=== PATIENT | female | born 1985 | race Caucasian/White ===

== ENCOUNTER → 2023-10-28 08:00 | Outpatient (REF) | payer BC, SELFPAY ==
[2023-10-28 10:13] LABS: % Basophils 0.7 % (0-2); % Eosinophils 0.9 % (0-6); % Immature Granulocytes 0.4 % (0-0.5); % Lymphocytes 21.4 % (20.5-51.1); % Monocytes 5.7 % (1.7-9.3); % Neutrophils 70.9 % (42.2-75.2); Absolute Eosinophils 0.1 10^3/uL (0-0.7); Absolute Lymphocytes 1.2 10^3/uL (1.2-3.4); Absolute Monocytes 0.3 10^3/uL (0.1-0.6); Absolute Neutrophils 3.9 10^3/uL (1.4-6.5); Hematocrit 35.1 % (37.0-47.0); Mean Corp Hgb Conc. 34.2 g/dL (33.0-37.0); Mean Corpuscular Hgb 31.8 pg (27.0-31.0); Mean Corpuscular Volume 93.1 fL (81.0-99.0); Mean Platelet Volume 10.7 fL (7.4-10.4); Nucleated Red Blood Cells % 0 %; Platelet Count 201 10^3/uL (130-400); Red Blood Cell Count 3.77 10^6/uL (4.20-5.40); Red Cell Dist. Width 12.1 % (11.5-14.5); White Blood Cell Count 5.5 10^3/uL (4.8-10.8)
[2023-10-28 10:42] LABS: ALT (SGPT) 11 U/L (0-35); AST (SGOT) 25 U/L (14-36); Albumin 4.9 g/dl (3.5-5.0); Alkaline Phosphatase 63 U/L (38-126); Blood Urea Nitrogen 14 mg/dl (7-17); Calcium 9.6 mg/dl (8.4-10.2); Carbon Dioxide 24 mmol/L (22-30); Chloride 106 mmol/L (98-107); Glucose 76 mg/dl (70-99); Potassium 4.9 mmol/L (3.5-5.1); Sodium 137 mmol/L (135-145); Total Bilirubin 0.7 mg/dl (0.2-1.3); Total Cholesterol 220 mg/dl (50-199); Total Protein 7.5 g/dl (6.3-8.2); Triglyceride 95 mg/dl (10-149); Very Low Density Lipoprotein 19 mg/dl (0-30); eGFR > 60.00
[2023-10-28 10:52] LABS: HDL Cholesterol 115 mg/dl; LDL Cholesterol, Calculated 86 mg/dl
[2023-10-28 10:59] LABS: Vitamin D, 25-OH*** 39.2 ng/mL (30-80)
[2023-10-28 11:13] LABS: TSH Reflex To Free T4 2.52 uIU/ml (0.47-4.68)
[2023-10-28 11:32] LABS: Vitamin B12 544 pg/ml (239-931)
== END ==
LOC: REG 08:00
PROVIDERS: ATTENDING PHYSICIAN Internal Medicine
DX: Z00.00 Encounter for general adult medical examination without abnormal findings (principal); E55.9 Vitamin D deficiency, unspecified; Z12.31 Encounter for screening mammogram for malignant neoplasm of breast; Z80.3 Family history of malignant neoplasm of breast; F41.9 Anxiety disorder, unspecified; R53.83 Other fatigue
CPT/HCPCS: 36415; 80053; 80061; 82306; 82607; 83735; 84443; 85025

== ENCOUNTER → 2024-02-16 15:12 | Outpatient (REF) | payer BC, SELFPAY | LOC: WDC 15:12 | PROVIDERS: ATTENDING PHYSICIAN Obstetrics & Gynecology; FAMILY PHYSICIAN Internal Medicine | DX: Z12.31 Encounter for screening mammogram for malignant neoplasm of breast (principal) | CPT/HCPCS: 77063; 77067 ==

== ENCOUNTER → 2024-04-06 14:30 | Outpatient (REF) | payer BC, SELFPAY | LOC: CPAP 14:30 | PROVIDERS: ATTENDING PHYSICIAN Obstetrics & Gynecology | DX: R87.810 Cervical high risk human papillomavirus (HPV) DNA test positive (principal) | CPT/HCPCS: 88305 ==

== ENCOUNTER → 2024-04-26 10:49 | Outpatient (REF) | payer BC, SELFPAY | LOC: WDC 10:49 | PROVIDERS: ATTENDING PHYSICIAN Obstetrics & Gynecology; FAMILY PHYSICIAN Internal Medicine | DX: R92.2 Inconclusive mammogram (principal) | CPT/HCPCS: 76641 ==

== ENCOUNTER 2024-05-03 06:12 | Day surgery (SDC) | payer BC, SELFPAY ==
[2024-05-03] VITALS (8 sets, daily range): BP systolic 112–129; BP diastolic 70–86; BMI 24.9
[2024-05-03] MEDS: NORMOSOL-R/PLASMALYTE-A 1000 IV (09:05)
== END 2024-05-03 12:30 | disposition home or self-care (01) ==
LOC: SDS 06:12
PROVIDERS: ATTENDING PHYSICIAN Obstetrics & Gynecology
DX: D06.7 Carcinoma in situ of other parts of cervix (principal)
CPT/HCPCS: 57522; 88305; 88307

== ENCOUNTER → 2024-11-05 07:30 | Outpatient (REF) | payer BC, SELFPAY ==
[2024-11-05 09:42] LABS: Hematocrit 36.4 % (37.0-47.0); Hemoglobin 12.0 g/dL (12.0-16.0); Mean Corp Hgb Conc. 33.0 g/dL (33.0-37.0); Mean Corpuscular Volume 94.1 fL (81.0-99.0); Nucleated Red Blood Cells % 0 %; Platelet Count 195 10^3/uL (130-400); Red Cell Dist. Width 12.1 % (11.5-14.5)
[2024-11-05 10:02] LABS: ALT (SGPT) 16 U/L (0-35); AST (SGOT) 25 U/L (14-36); Albumin 4.7 g/dl (3.5-5.0); Alkaline Phosphatase 52 U/L (38-126); Blood Urea Nitrogen 15 mg/dl (7-17); Calcium 9.2 mg/dl (8.4-10.2); Carbon Dioxide 28 mmol/L (22-30); Chloride 103 mmol/L (98-107); Glucose 89 mg/dl (70-99); Potassium 4.1 mmol/L (3.5-5.1); Sodium 138 mmol/L (135-145); Total Protein 7.3 g/dl (6.3-8.2); Very Low Density Lipoprotein 10 mg/dl (0-30); eGFR > 60.00
[2024-11-05 10:12] LABS: HDL Cholesterol 113 mg/dl; LDL Cholesterol, Calculated 99 mg/dl
[2024-11-05 10:16] LABS: Vitamin D, 25-OH*** 38.4 ng/mL (30-80)
[2024-11-05 11:06] LABS: Folate > 20.0 ng/ml (2.76-20); Vitamin B12 579 pg/ml (239-931)
== END ==
LOC: HWRAD 07:30
PROVIDERS: ATTENDING PHYSICIAN Internal Medicine
DX: D17.23 Benign lipomatous neoplasm of skin and subcutaneous tissue of right leg (principal); Z11.3 Encounter for screening for infections with a predominantly sexual mode of transmission; Z00.00 Encounter for general adult medical examination without abnormal findings; E55.9 Vitamin D deficiency, unspecified; F41.9 Anxiety disorder, unspecified; Z80.3 Family history of malignant neoplasm of breast
CPT/HCPCS: 36415; 76882; 80053; 80061; 82306; 82607; 82746; 84443; 85025; 87491; 87591

== ENCOUNTER → 2025-01-30 17:08 | Outpatient (REF) | payer BC, SELFPAY | LOC: CPAP 17:08 | PROVIDERS: ATTENDING PHYSICIAN Obstetrics & Gynecology | DX: N87.9 Dysplasia of cervix uteri, unspecified (principal); Z11.51 Encounter for screening for human papillomavirus (HPV) | CPT/HCPCS: 87624; G0123 ==